=== PATIENT | male | born 1930 | race Caucasian/White ===

== ENCOUNTER → 2016-09-01 | Outpatient (CLI) | payer MEDICARE, BC | END | disposition home or self-care (01) | LOC: GMAM 15:28 | PROVIDERS: ATTEND Family Medicine | DX: R80.9 Proteinuria, unspecified (principal) ==

== ENCOUNTER → 2017-03-02 | Outpatient (CLI) | payer MEDICARE, BC | END | disposition home or self-care (01) | LOC: GMAM 10:57 | PROVIDERS: ATTEND Family Medicine | DX: Z12.5 Encounter for screening for malignant neoplasm of prostate (principal) ==

== ENCOUNTER 2017-04-12 15:50 | Observation (INO) | payer MEDICARE, BC ==
--- NOTE | 2017-04-12 16:00 | ED.PDOC ---
History of Present Illness - General Chief Complaint: General Stated Complaint: cough/sore throat Time Seen by Provider: 04/12/17 15:59 Source: patient Exam Limitations: no limitations - History of Present Illness Comments: Vinny Basilio 86 y/o male stated that he got back from [place] yesterday and had productive cough and achy throat starting yesterday.Denies fever ,SOB,chest pains.No nausea vomiting Timing/Duration: yesterday Cough Quality/Degree: productive cough Possible Cause: no prior episodes Improving Factors: nothing Worsening Factors: nothing Associated Symptoms: sore throat Allergies/Adverse Reactions: Allergies NO KNOWN ALLERGY Allergy (Verified 04/12/17 16:06) Home Medications: Ambulatory Orders Albuterol Inhaler [Ventolin Hfa Inhaler] 108 mcg IN Q6HR #1 inh 04/12/17 Azithromycin Tab [Zithromax] 500 mg PO QDPC #6 tab 04/12/17 Promethazine-Dm [Promethazine-Dm 6.25-15 mg/5Ml] 2.5 tsp PO QID #200 syp Review of Systems - Review of Systems Constitutional: States: no symptoms reported EENTM: States: nose congestion Respiratory: States: see HPI Cardiology: States: no symptoms reported Gastrointestinal/Abdominal: States: no symptoms reported Genitourinary: States: no symptoms reported Past Medical History (General) - Patient Medical History Hx Other PMH: Yes - narcolepsy Surgical History: other - cataract Family Medical History - Family History Mother Family History: Unknown Physical Exam - Physical Exam General Appearance: Alert, No apparent distress Eye Exam: right other - blurry vision right eye with corrective galsses, left normal ENT Exam: normal ENT inspection, hearing grossly normal, pharyngeal erythema Neck: non-tender, full range of motion, supple Respiratory: chest non-tender, no respiratory distress, other - coarse breath sounds Cardiovascular/Chest: regular rate, rhythm, no murmur Gastrointestinal/Abdominal: normal bowel sounds, non tender, soft, no organomegaly Extremity: normal inspection, no pedal edema, no calf tenderness Neurologic: alert, oriented x 3 Progress - Progress Progress: 04/12/17 16:30 Vital Signs 04/12/17 04/12/17 15:58 16:07 Temperature 101.3 F H Pulse Rate [ 120 H pulse ox] Respiratory 20 20 Rate Blood Pressure 110/70 [left arm] O2 Sat by Pulse 92 L Oximetry - Results/Orders Results/Orders: Laboratory Tests 04/12/17 04/12/17 04/12/17 16:08 16:52 16:52 WBC 8.1 RBC 4.03 L Hgb 12.7 L Hct 37.7 L MCV 93.5 MCH 31.5 H MCHC 33.6 RDW 12.8 Plt Count 169 MPV 8.6 Absolute Neuts (auto) 6.10 Absolute Lymphs (auto) 0.90 L Absolute Monos (auto) 0.80 Absolute Eos (auto) 0.20 Absolute Basos (auto) 0.10 Neutrophils % 75.5 Lymphocytes % 10.6 L Monocytes % 10.1 H Eosinophils % 3.1 Basophils % 0.7 Sodium 138 Potassium 4.4 Chloride 104 Carbon Dioxide 26 Anion Gap 12.4 BUN 35 H Creatinine 2.19 H BUN/Creatinine Ratio 16.0 Random Glucose 118 H Serum Osmolality 284.7 Lactic Acid Calcium 8.6 Total Bilirubin 0.8 AST 24 ALT 19 Alkaline Phosphatase 42 Serum Total Protein 6.9 Albumin 4.0 Globulin 2.9 Albumin/Globulin Ratio 1.4 Group A Strep DNA Negative 04/12/17 16:52 WBC RBC Hgb Hct MCV MCH MCHC RDW Plt Count MPV Absolute Neuts (auto) Absolute Lymphs (auto) Absolute Monos (auto) Absolute Eos (auto) Absolute Basos (auto) Neutrophils % Lymphocytes % Monocytes % Eosinophils % Basophils % Sodium Potassium Chloride Carbon Dioxide Anion Gap BUN Creatinine BUN/Creatinine Ratio Random Glucose Serum Osmolality Lactic Acid 1.0 Calcium Total Bilirubin AST ALT Alkaline Phosphatase Serum Total Protein Albumin Globulin Albumin/Globulin Ratio Group A Strep DNA FLU SWAB -negative - EKG/XRAY/CT XRAY: chest - no acute abnormalities Departure - Departure Clinical Impression: Renal insufficiency Bronchitis, acute Qualifiers: Bronchitis organism: unspecified organism Qualified Code(s): J20.9 - Acute bronchitis, unspecified Time of Disposition: 19:26 [facility] Living Condition: Fair Instructions: DI for Acute Bronchitis, Acute Bronchitis, Acute Bronchitis ( Alternative Therapy) Referrals: Kyle Mccormick MD [Primary Care Provider] - 1-2 Weeks Prescriptions: Albuterol Inhaler [Ventolin Hfa Inhaler] 108 mcg IN Q6HR #1 inh Azithromycin Tab [Zithromax] 500 mg PO QDPC #6 tab Promethazine-Dm [Promethazine-Dm 6.25-15 mg/5Ml] 2.5 tsp PO QID #200 syp Home Medications: Ambulatory Orders Albuterol Inhaler [Ventolin Hfa Inhaler] 108 mcg IN Q6HR #1 inh 04/12/17 Azithromycin Tab [Zithromax] 500 mg PO QDPC #6 tab 04/12/17 Promethazine-Dm [Promethazine-Dm 6.25-15 mg/5Ml] 2.5 tsp PO QID #200 syp Additional Instructions: Follow up with primary MD 04/14/2017 call for appointment;Tylenol-500 mg by mouth every 6 hours as needed for fever
[2017-04-12] MEDS ORDERED: IPRATROPIUM/ALBUTEROL 3 ML VIAL NEB ONE (16:30)
--- NOTE | 2017-04-12 16:51 | RAD ---
PROCEDURE: XR CHEST 1 VIEW HISTORY: cough COMPARISON: None TECHNIQUE: Single projection of the chest was done. FINDINGS: The lung rivera are well inflated . There are no discrete airspace infiltrates, pneumothoraces or pleural effusions. The pulmonary vascularity is normal. The cardiomediastinal silhouette is unremarkable for patient's age and sex. IMPRESSION: There is no acute pleural-parenchymal process seen in the imaged lung rivera. Location of Interpretation: Teleradiology Electronically signed by: Cristopher Diamond MD 04/12/2017 4:50 PM CDT Workstation: [id number]
[2017-04-12] MEDS ORDERED: AZITHROMYCIN IV 500 MG in SODIUM CHLORIDE 0.9% 250ML 250 ML IVPB ONE (17:46)
[2017-04-12] MEDS ORDERED: SODIUM CHLORIDE 0.9% 500ML 500 ML IVS ONE (17:46)
[2017-04-12] MEDS ORDERED: AZITHROMYCIN IV 500 MG VIAL IVPB ONE (18:07)
[2017-04-12] MEDS ORDERED: SODIUM CHLORIDE 0.9% 250ML 250 ML ONE (18:07)
[2017-04-12] MEDS ORDERED: BENZONATATE PERLES 100 MG CAP PO ONE (18:22)
[2017-04-12] MEDS ORDERED: DEXTROMET/GUAIFENESIN 600/30 TAB PO ONE (18:28)
[2017-04-12] MEDS: guaiFENesin ER TAB 600 MG TAB PO SCH (18:35)
[2017-04-12] MEDS ORDERED: LEVALBUTEROL NEBS 1.25 MG/3 ML VIAL NEB ONE ×2 (19:04→19:05)
[2017-04-12] MEDS ORDERED: SODIUM CHLORIDE 0.9% 1000ML 1,000 ML ONE (20:22)
[2017-04-12] MEDS ORDERED: SODIUM CHLORIDE 0.9% 1000ML 1,000 ML IVS ONE (20:22)
[2017-04-12] MEDS ORDERED: ACETAMINOPHEN 500 MG TAB ONE (20:29)
[2017-04-12] MEDS ORDERED: DEXTROMET/GUAIFENESIN 600/30 TAB PO SCH (21:00)
[2017-04-12] MEDS ORDERED: ACETAMINOPHEN 500 MG TAB PO ONE (21:16)
[2017-04-12] MEDS ORDERED: KETOROLAC TROMETHAMINE INJ 30 MG/ML VIAL IV ONE (23:06)
[2017-04-13] MEDS ORDERED: SODIUM CHLORIDE 0.9% 1000ML 1,000 ML IVS ONE (00:04)
[2017-04-13] MEDS ORDERED: ACETAMINOPHEN 325 MG TAB PO PRN (00:45)
[2017-04-13] MEDS ORDERED: LEVALBUTEROL NEBS 1.25 MG/3 ML VIAL INH PRN (00:45)
[2017-04-13] MEDS ORDERED: SODIUM CHLORIDE 0.9% (FLUSH) 10 ML SYG IV PRN (00:45)
[2017-04-13] MEDS: guaiFENesin ER TAB 600 MG TAB PO SCH ×3 (00:47→20:46)
[2017-04-13] MEDS ORDERED: IV SET AND CAP CHANGE INJ INJ SCH (01:00)
[2017-04-13] MEDS ORDERED: methylPREDNISolone SODIUM SUC 125 MG/2 ML VIAL IV ONE (01:12)
[2017-04-13] MEDS ORDERED: cefTRIAXone SODIUM 1 GM VIAL ONE (01:13)
[2017-04-13] MEDS ORDERED: SODIUM CHL 0.9% 50ML MIN-BAG+ 50 ML IVPB ONE (01:13)
[2017-04-13] MEDS: cefTRIAXone SODIUM 1 GM in SODIUM CHL 0.9% 50ML MIN-BAG+ 50 ML IVPB SCH (01:15)
[2017-04-13] MEDS ORDERED: SODIUM CHLORIDE 0.9% 250ML 250 ML ONE (08:04)
[2017-04-13] MEDS ORDERED: AZITHROMYCIN IV 500 MG VIAL IVPB ONE (08:04)
[2017-04-13] MEDS: LEVALBUTEROL NEBS 1.25 MG/3 ML VIAL INH SCH ×3 (08:35→23:26)
[2017-04-13] MEDS ORDERED: DOCUSATE SODIUM 100 MG CAP PO PRN (09:00)
[2017-04-13] MEDS ORDERED: TELMISARTAN 20 MG PO SCH (09:00)
[2017-04-13] MEDS: DOCUSATE SODIUM 100 MG CAP PO SCH (09:27)
[2017-04-13] MEDS: PANTOPRAZOLE SODIUM TAB 40 MG PO SCH (09:27)
[2017-04-13] MEDS: METHYLPHENIDATE HCL 5 MG PO SCH ×4 (11:30→20:54)
[2017-04-13] MEDS: FELODIPINE 5 MG PO SCH (11:30)
[2017-04-13] MEDS ORDERED: KCL 20MEQ/0.45% NS 1,000 ML IVS PRN (13:18)
[2017-04-13] MEDS ORDERED: DUTASTERIDE 0.5 MG CAP ONE (14:28)
[2017-04-13] MEDS ORDERED: TAMSULOSIN 0.4 MG CAP ONE (14:28)
[2017-04-13] MEDS ORDERED: TAMSULOSIN 0.4 MG CAP PO SCH (18:00)
[2017-04-13] MEDS ORDERED: DUTASTERIDE 0.5 MG CAP PO SCH (18:00)
[2017-04-13] MEDS ORDERED: MORPHINE PCA 1 MG/ML 100 ML BAG IVPB ONE (18:09)
--- NOTE | 2017-04-13 19:09 | PCM.CORE ---
Physician DVT/VTE - Nurse DVT Assessment & Total Each Risk Factor Represents 3 Points: Age over 75 years Each Risk Factor is 1 Point: Obesity (BMI >25) DVT Assessment Score: 4 - 3-4 High Risk Treatments: Early Ambulation *, Sequential Compression Device Pharmacological: Enoxaparin 40 mg SQ Daily
[2017-04-13] MEDS ORDERED: AZITHROMYCIN IV 500 MG in SODIUM CHLORIDE 0.9% 250ML 250 ML IVPB SCH (19:30)
[2017-04-13] MEDS ORDERED: ENOXAPARIN SODIUM 40 MG/0.4 ML SYG SUBCU SCH (21:00)
[2017-04-14] MEDS ORDERED: ALUM & MAG HYDROX-SIMETHICONE 30 ML UD PO PRN (00:40)
[2017-04-14] MEDS ORDERED: diphenhydrAMINE HCL 25 MG CAP PO PRN (00:41)
[2017-04-14] MEDS ORDERED: SODIUM CHL 0.9% 50ML MIN-BAG+ 50 ML IVPB ONE (00:50)
[2017-04-14] MEDS ORDERED: cefTRIAXone SODIUM 1 GM VIAL ONE (00:50)
[2017-04-14] MEDS: cefTRIAXone SODIUM 1 GM in SODIUM CHL 0.9% 50ML MIN-BAG+ 50 ML IVPB SCH (01:17)
[2017-04-14] MEDS: PANTOPRAZOLE SODIUM TAB 40 MG PO SCH (05:53)
--- NOTE | 2017-04-14 06:49 | RAD ---
Clinical History : hypoxia , MAIN Exam : PA and lateral views of the chest 04/14/2017 7:00 AM CDT Comparisons : Portable AP view of the chest April 12, 2017 Findings : The lungs are clear without focal consolidation or pleural effusion. The heart is normal in size. The mediastinal contours are normal in appearance. The thoracic spine is age appropriate. The shoulders are unremarkable. Limited evaluation of the upper abdomen demonstrates no gross abnormalities. Impression: No acute cardiopulmonary disease Electronically signed by: Roxanne Arias MD 04/14/2017 6:48 AM CDT
[2017-04-14] MEDS ORDERED: LOSARTAN POTASSIUM 25 MG TAB ONE (07:47)
[2017-04-14] MEDS ORDERED: PHENOL THROAT SPRAY 180 ML BTTL MT PRN (08:30)
[2017-04-14] MEDS ORDERED: PHENOL THROAT SPRAY 180 ML BTTL MT ONE (08:30)
[2017-04-14] MEDS: guaiFENesin ER TAB 600 MG TAB PO SCH (08:38)
[2017-04-14] MEDS: FELODIPINE 5 MG PO SCH (08:38)
[2017-04-14] MEDS: DOCUSATE SODIUM 100 MG CAP PO SCH (08:38)
[2017-04-14] MEDS: METHYLPHENIDATE HCL 5 MG PO SCH (08:39)
[2017-04-14] MEDS ORDERED: LOSARTAN POTASSIUM 25 MG TAB PO SCH (09:00)
[2017-04-14 11:00] VITALS: BP 112/72; TEMP 97.8; O2SAT 97
--- NOTE | 2017-04-15 08:22 | SSS ---
SUPERVISING PHYSICIAN: Jose Gresham M.D. DATE OF ADMISSION: 04/13/17 DATE OF DISCHARGE: 04/14/17 CHIEF COMPLAINT: Cough and sore throat. HISTORY OF PRESENT ILLNESS: Mr. Basilio is an 86 year-old male patient that just recently returned from an extensive trip to [place] and a [place] cruise. On his way home going through [place] he developed a productive cough and sore throat. He denied any fever, shortness of breath, chest pains, nausea or vomiting. He did note that his sputum had become more productive and more purulent in nature. X-ray in the Emergency Department single view chest showed no consolidation or opacities. His laboratory studies initially showed a white count of 8.1, hemoglobin 12.7, hematocrit 37.7 without a left shift. Blood gas analysis did show a mild hypoxemia with PO2 of 78, PCO2 of 40, satting 96% on room air. Chemistry showed a decreased renal function with BUN of 35, creatinine 2.19. Lactic acid was normal at 1.0. Microbiology showed a Group A Strep DNA PCR was negative. On initial presentation to the Emergency Department , his vital signs did show that he was febrile with a temperature of 101.9. Heart rate was 140 with blood pressure 86/30, initially was satting 90% on room air. Given that he was showing some early signs of sepsis and had recently travelled out of the country and an extensive amount of travel within the last several days, and was developing upper respiratory symptoms, Dr. Burns, E. R. physician, requested the patient be admitted to the hospital to be placed in Observation at least for 24 hours with concerns for developing community acquired pneumonia. His first lactic acid was within normal limits. He was showing hypotensive, therefore he was given some IV fluids in the Emergency Department and prior to admission along with Tylenol. His heart rate remained at 101 with temperature going down to 99.4, but his blood pressure had improved to 106/60. Given that he was shown to be stable, he was placed in observation to the Medical/Surgical floor for further continuation with concerns for pneumonia community acquired. He was placed in Observation in stable condition. PAST MEDICAL HISTORY: 1. Hypertension. 2. Renal insufficiency. 3. Chronic lower back pain. 4. Arthritis. 5. Glaucoma. 6. Obesity. 7. Narcolepsy. PAST SURGICAL HISTORY: 1. Tonsillectomy. 2. Eye surgery. 3. Last echocardiogram noted to be in 2007 which was showing an ejection fraction of 61%. HOME MEDICATIONS: 1. Docusate 100 mg as needed. 2. Docusate 100 mg daily. 3. Dutasteride 0.5 mg every PM. 4. Felodipine extended release 5 mg daily. 5. Lasix 20 mg daily as needed. 6. Lasix 20 mg daily. 7. Methylphenidate 5 mg twice daily. 8. Multivitamins 1 capsule daily. 9. Nitroglycerin 0.4 mg sublingual every 5 minutes p.r.n. 10. Potassium chloride 8 mEq as needed. 11. Flomax 0.4 mg daily. 12. Micardis 20 mg daily. 13. Protonix 40 mg daily. 14. Citracal Plus 1 tablet daily. 15. Ascorbic acid 1 tablet daily. ALLERGIES: LISINOPRIL. FAMILY HISTORY: Positive for coronary artery disease. Father at age 58 secondary to myocardial infarction. Mother at age 91. SOCIAL HISTORY: The patient lives at [facility]. 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 He is . He has never smoked and does not drink alcohol. REVIEW OF SYSTEMS: CONSTITUTIONAL: As noted in the History of Present Illness, fever and chills, generalized weakness. HEENT: Notable nasal congestion, hoarseness, sore throat. RESPIRATORY: As noted in the History of Present Illness. CARDIOVASCULAR: No chest pains, palpitations, syncopal episodes. GASTROINTESTINAL: No nausea, vomiting, diarrhea, constipation or bowel habit change. GENITOURINARY: Denies any dysuria or hematuria or other urinary symptoms. NEUROLOGIC: No neurological deficits noted. PHYSICAL EXAMINATION: VITAL SIGNS: Temperature 101.3, heart rate 140, blood pressure 86/30, respirations 20, satting 90% on room air. Admission weight 93.5 kg. GENERAL: On examination on the Medical/Surgical floor, the patient appeared to be resting comfortably in no acute distress. Well nourished, somewhat hydrated. He is alert and oriented times three. HEENT: Tympanic membranes are clear bilaterally. Oropharynx is mildly erythematous. No drainage was noted. No lesions. NECK: Supple, non-tender with full range of motion. No jugular venous distention. CHEST: Lungs were coarse throughout with just very faint rhonchi heard on the right anterior aspect of the upper lung, left was fairly clear but both were diminished bilaterally towards the bases. CARDIOVASCULAR: Regular rate and rhythm without appreciable murmurs, gallops, or rubs. ABDOMEN: Obese but soft, non-tender with positive bowel sounds. EXTREMITIES: No clubbing, cyanosis or edema. NEUROLOGIC: He is alert and oriented times three. Facial features were symmetrical. Extraocular movements are within normal limits. There is no notable nystagmus. Cranial nerves II-XII are grossly intact. LABORATORY: Initial CBC on admission showed a white count of 8.1, hemoglobin 12.7, hematocrit 37.7 with platelet count 169,000. Differential shows no left shift initially. Blood gas showed a mild hypoxemia with PO2 of 78 on room air. CO2 was 40, pH was 7.37, bicarb 22, satting 96% on 3 liters nasal cannula. Chemistries showed normal electrolytes, BUN was elevated at 35, creatinine 2.19 , glucose 118. Liver functions all showed to be within normal limits. Lactic acid was 1.0. Urinalysis showed a trace of blood, otherwise within normal limits. He has a Legionella antigen testing pending. Group A Strep by DNA PCR was negative. MICROBIOLOGY: Blood cultures are pending times 2. Sputum culture pending. Gram stain showed many WBCs with positive cocci in chains and gram positive lancet-shaped cocci with gram negative cocci in pairs, gram negative cocci in chains with moderate amount of budding yeast. Group A Streptococcus culture was pending. Influenza A by PCR which was negative for both A and B. RADIOLOGY: Chest x-ray initially in the Emergency Department single view chest per radiology interpretation showed no acute pleural parenchymal processes noted in the imaged rivera. ASSESSMENT: 1. Acute bronchitis with concerns for developing community-acquired pneumonia with the patient having a history of recent travel both out of the [place] and showing gram stain with multiple organisms with cultures pending. 2. Febrile illness likely secondary to number 1. 3. Systemic inflammatory response is noted by tachycardia, fever and hypotension with a normal lactic acid likely secondary to acute bronchitis developing with community-acquired pneumonia. 4. History of Hypertension. 5. Acute pharyngitis with initial Strep screen being negative. 6. Renal insufficiency possibly secondary to prerenal azotemia requiring initiation of fluids. 7. Hypotension with tachycardia secondary to #1 showing initially good response with IV fluids and initiation of parenteral antibiotics. PLAN: The patient will be placed in observation initially. He did show response to initial treatment with fluids, initiation of antibiotics to include Azithromycin and Rocephin. He will be started on Xopenex breathing treatments as well as have aggressive pulmonary hygiene with chest physiotherapy. Will plan to give him some IV fluids to help with improving renal function initially with half normal saline with 20 of potassium to run at 80 an hour. Will anticipate length of stay to be 1 to 2 days with reevaluation clinically with repeat chest x-ray and laboratory studies in the morning. Until then, will continue to monitor and treat appropriately. #[id number] [facility]
--- NOTE | 2017-04-15 13:26 | DS ---
SUPERVISING PHYSICIAN: Jose Gresham MD DISCHARGE DIAGNOSIS: 1. Acute bronchitis with concerns for developing community-acquired pneumonia with the patient having a history of recent travel out of the [facility] and showing gram stain with multiple organisms with cultures pending. 2. Febrile illness, likely secondary to #1. 3. Systemic inflammatory response as noted by tachycardia, fever and hypotension with a normal lactic acid, likely secondary to acute bronchitis. 4. History of Hypertension. 5. Acute pharyngitis with initial Strep screen being negative. 6. Renal insufficiency, possibly secondary to prerenal azotemia, requiring initiation of fluids. 7. Hypotension with tachycardia, secondary to #1, showing initially good response with IV fluids and parenteral antibiotics. HISTORY OF PRESENT ILLNESS: This is an 86-year-old male patient that just recently returned to [place] after an extensive trip to [place] and a [place] cruise. On his way home going through [place], he developed a productive cough and sore throat. He denied any fever, shortness of breath, chest pains, nausea or vomiting. He did note that his sputum had become more productive and more purulent in nature. X-ray in the Emergency Department single view chest showed no consolidation or opacities. His initial laboratory studies initially showed a white count of 8.1, hemoglobin 12.7, hematocrit 37.7 without a left shift. Blood gas analysis did show a mild hypoxemia with PO2 of 78, PCO2 of 40 , satting 96% on room air. Chemistry showed a decreased renal function with BUN of 35, creatinine 2.19. Lactic acid was normal at 1.0. Group A Strep DNA PCR was negative. He was febrile initially in the extraocular movements with a temperature of 101.9. Heart rate was 140 with blood pressure 86/30, initially was satting 90% on room air. He was showing some early signs of sepsis and had recently travelled out of the [facility]. He was admitted and placed in observation for 24 hours with concerns of developing community acquired pneumonia. By the time he was admitted to the Floor, vital signs had stabilized and he was placed in observation. HOSPITAL COURSE: He was given fluids as well as Rocephin and azithromycin. His chest x-ray this morning per radiologic interpretation again showed no acute cardiopulmonary disease. His AM labs showed normalized WBCs of 9.9 with a hemoglobin of 10.6 and 31.7. Chemistries were basically within normal limits. His preliminary blood cultures showed no growth after 24 hours. The patient responded very well to his IV fluids. Vital signs stable. He will be discharged home. DISCHARGE PLAN: The patient will be discharged home in stable condition. He is to resume his previous medications and I have added azithromycin for several more days. He is to followup with Dr. Mccormick on 04/21/17 at 2:45. He is to return to the Emergency Room or call Dr. Mccormick's office, [facility], he has any further problems. DISCHARGE MEDICATIONS: 1. Albuterol inhaler. 2. Azithromycin. 3. Promethazine syrup. 4. Telmisartan. 5. Tamsulosin. 6. Potassium chloride. 7. Protonix. 8. Nitroglycerin. 9. Multivitamin. 10. Methylphenidate. 11. Furosemide. 12. Felodipine. 13. Dutasteride. 14. Docusate sodium. 15. Citracal Plus. 16. Ascorbic acid. 17. Maalox. Dr. Gresham is the is the collaborating physician and available for consultation. #[id number] [facility]
== END 2017-04-14 11:45 | disposition home or self-care (01) ==
LOC: ER 15:50 → MS 15:59 → UNDOADMOB 04-13 00:19 → MS 04-13 00:19 → UNDODISOB 04-14 11:45
PROVIDERS: ADMIT Nurse Practitioner Family; ATTEND Nurse Practitioner Acute Care
DX: J20.8 Acute bronchitis due to other specified organisms (principal); R65.10 Systemic inflammatory response syndrome (SIRS) of non-infectious origin without acute organ dysfunction; R50.9 Fever, unspecified; I10 Essential (primary) hypertension; J02.9 Acute pharyngitis, unspecified; N28.9 Disorder of kidney and ureter, unspecified; I95.9 Hypotension, unspecified; R00.0 Tachycardia, unspecified; R09.02 Hypoxemia; G89.29 Other chronic pain; M54.5 Low back pain; M19.90 Unspecified osteoarthritis, unspecified site; G47.419 Narcolepsy without cataplexy; E66.9 Obesity, unspecified; Z79.899 Other long term (current) drug therapy; Z88.8 Allergy status to other drugs, medicaments and biological substances; Z82.49 Family history of ischemic heart disease and other diseases of the circulatory system; Z68.27 Body mass index [BMI] 27.0-27.9, adult
CPT/HCPCS: 36415 ×4; 36600; 71010; 71020; 80048; 80053 ×2; 81001; 82803; 82805; 83605; 85025 ×3; 87040 ×2; 87070 ×2; 87205; 87449; 87502; 87651; 93005; 94640 ×4; 94760 ×3; 94762; 96361 ×2; 96365; 96366; 96367; 96372; 96375 ×2; 96376 ×2; 99284; G0378; J0456 ×2; J0696 ×2; J1650; J1885; J2930; J3480; J7030 ×2; J7040; J7050 ×4; J7614 ×5; J7620; Q0163

== ENCOUNTER 2017-08-30 13:23 | Emergency (ER) | payer MEDICARE, BC ==
[2017-08-30] MEDS ORDERED: IBUPROFEN 200 MG TAB PO ONE (13:49)
--- NOTE | 2017-08-30 14:03 | RAD ---
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 No pleural effusion or pneumothorax. Cardiac silhouette is normal in size. Impression: No acute pulmonary process. Electronically signed by: Trina Majano MD 08/30/2017 2:02 PM KNITTER OPERATOR
[2017-08-30] MEDS ORDERED: SODIUM CHLORIDE 0.9% 1000ML 1,000 ML IVS ONE (14:38)
[2017-08-30] MEDS ORDERED: OSELTAMIVIR 75 MG CAP PO ONE (16:08)
[2017-08-30] MEDS ORDERED: levoFLOXacin 500 MG TAB PO ONE (16:08)
[2017-08-30 16:09] VITALS: TEMP 100.6
[2017-08-30] MEDS ORDERED: predniSONE 20 MG TAB PO ONE (16:09)
[2017-08-30] MEDS ORDERED: ACETAMINOPHEN 325 MG TAB PO ONE (16:11)
--- NOTE | 2017-08-30 16:11 | ED.PDOC ---
History of Present Illness - General Chief Complaint: Fever Stated Complaint: Weakness Time Seen by Provider: 08/30/17 13:46 Source: patient Exam Limitations: no limitations - History of Present Illness Initial Comments: the patient is an 86-year-old male presenting to the emergency room secondary to fever and malaise primarily over the last 24-48 hours. He has felt generally weak. He has had a poor oral intake. No nausea vomiting diarrhea or constipation. No shortness of breath or chest pain. No syncope or significant syncope. He is feeling very fatigued. Mild generalized body aches. He does have a little bit of a cough and a little bit of a runny nose. No real sore throat. Mild headache. Timing/Duration: 24 hours Severity: moderate Improving Factors: nothing Worsening Factors: nothing Associated Symptoms: cough, fever/chills, loss of appetite, malaise, weakness Allergies/Adverse Reactions: Allergies Lisinopril Allergy (Mild, Verified 08/30/17 13:38) Unknown allergy per pt Home Medications: Ambulatory Orders Albuterol Inhaler [Ventolin Hfa Inhaler] 108 mcg IN Q6HR #1 inh 04/12/17 Alum & Mag Hydrox-Simethicone [Aluminum/Magnesium/Simeth 200-200-20 mg/5Ml] 10 ml PO Q6H PRN 04/13/17 Ascorbic Acid [Vitamin C] 1,000 mg PO DAILY #0 04/13/17 Docusate Sodium 100 mg PO DAILY 04/13/17 Docusate Sodium 100 mg PO DAILY PRN 04/13/17 Dutasteride 0.5 mg PO QPM 04/13/17 Felodipine [Felodipine ER] 5 mg PO DAILY 04/13/17 Furosemide 20 mg PO DAILY 04/13/17 Furosemide 20 mg PO DAILY PRN 04/13/17 Methylphenidate HCl 5 mg PO BID 04/13/17 Multiple Minerals W/ Vitamins [Citracal Plus] 1 tab PO DAILY #0 04/13/17 Multiple Vitamin [Multivitamins] 1 cap PO DAILY 04/13/17 Nitroglycerin 0.4 mg SL Q5MIN PRN 04/13/17 Pantoprazole Tablet [Protonix] 40 mg PO DAILY 04/13/17 Potassium Chloride [Potassium Chloride ER] 8 meq PO DAILY 04/13/17 Potassium Chloride [Potassium Chloride ER] 8 meq PO PRN PRN 04/13/17 Tamsulosin HCl [Flomax] 0.4 mg PO BEDTIME 04/13/17 Telmisartan [Micardis] 20 mg PO DAILY 04/13/17 Acetaminophen [APAP Extra Strength] 500 mg PO Q6H PRN 08/30/17 Oseltamivir Capsule [Tamiflu] 75 mg PO BID 5 Days #10 capsule 08/30/17 Promethazine-Dm [Promethazine-Dm 6.25-15 mg/5Ml] 2.5 tsp PO Q6H PRN 08/30/17 levoFLOXacin [Levaquin] 500 mg PO DAILY #5 tab 08/30/17 Review of Systems - Review of Systems Constitutional: States: fever, malaise, weakness EENTM: States: nose congestion Respiratory: States: cough Cardiology: States: no symptoms reported Gastrointestinal/Abdominal: States: no symptoms reported Genitourinary: States: no symptoms reported Musculoskeletal: States: no symptoms reported Skin: States: no symptoms reported Neurological: States: see HPI Endocrine: States: no symptoms reported All other Systems: No Change from Baseline Past Medical History (General) - Patient Medical History Hx Seizures: No Hx Stroke: No Hx Asthma: No Hx of COPD: No Hx Congestive Heart Failure: No Hx Pacemaker: No Hx Hypertension: Yes Hx Diabetes: No Hx Renal Disease: Yes Hx MRSA: No - Vaccination History Hx Influenza Vaccination: Yes - 2017 Hx Pneumococcal Vaccination: Yes - Social History Hx Tobacco Use: No Hx Alcohol Use: No Hx Substance Use: No Hx Substance Use Treatment: No Hx Depression: No Hx Physical Abuse: No Hx Emotional Abuse: No - Activities of Daily Living Half-Way/Assisted Living (if applicable):: [facility] Family Medical History - Family History Mother Family History: Unknown Living Status: Father Family History: No Known Living Status: Hx Family;Other: at 48 of unknown causes Physical Exam - Physical Exam General Appearance: Alert, No apparent distress Eye Exam: bilateral normal Ears, Nose, Throat: hearing grossly normal, nasal congestion Neck: full range of motion, supple Respiratory: lungs clear - mild clearing cough, normal breath sounds, no respiratory distress, no accessory muscle use Cardiovascular/Chest: normal peripheral pulses, no edema, other - regular rate Peripheral Pulses: radial,right: 2+, radial,left: 2+, dorsalis pedis,right: 2+, dorsalis pedis,left: 2+ Gastrointestinal/Abdominal: non tender, soft Rectal Exam: deferred Back Exam: normal inspection, no CVA tenderness, no vertebral tenderness Extremity: non-tender, normal inspection, no pedal edema, normal capillary refill 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 II-XII nml as tested, alert, normal mood/affect, oriented x 3 Skin Exam: normal color Comments: Vital Signs - 24 hr 08/30/17 08/30/17 08/30/17 13:31 14:00 15:00 Temperature 101.2 F H 101.2 F H Pulse Rate [ 100 H 96 H 82 Left Radial] Respiratory 22 22 20 Rate Blood Pressure 115/81 131/59 [Left Arm] O2 Sat by Pulse 93 L 94 L 93 L Oximetry 08/30/17 15:50 Temperature 100.6 F H Pulse Rate [ 84 Left Radial] Respiratory 20 Rate Blood Pressure 108/56 [Left Arm] O2 Sat by Pulse 94 L Oximetry Progress - Progress Progress: 08/30/17 16:13 the patient 86-year-old male presenting to the emergency room secondary to fever and malaise for the last couple of days. He does have a mild runny nose and a mild cough. Blood work, urinalysis and chest x-ray are actually fairly reassuring. He does have a very mild leukocytosis and very mild acute renal failure. He was given a dose of IV fluids here for the acute renal failure. He was given Motrin and Tylenol for the fever. The patient is being empirically covered for flu as well as bacterial infections with Tamiflu and Levaquin. No flu test is available. No evidence of sepsis, pneumonia or meningitis. No evidence of infection otherwise. The patient will be placed on Tamiflu for 5 days and Levaquin for 5 days. He needs to keep himself well- hydrated. He needs to follow up with his primary care doctor in 2 days. He needs to alternate Tylenol and Motrin to keep his fever and body aches down over the next 24-48 hours. - Results/Orders Results/Orders: Laboratory Tests 08/30/17 08/30/17 08/30/17 14:07 14:07 14:07 WBC 9.9 RBC 4.15 L Hgb 12.9 L Hct 38.3 L MCV 92.3 MCH 31.0 MCHC 33.8 RDW 12.4 Plt Count 164 MPV 8.6 Absolute Neuts (auto) 8.10 H Absolute Lymphs (auto) 0.90 L Absolute Monos (auto) 0.90 H Absolute Eos (auto) 0.00 Absolute Basos (auto) 0.10 Neutrophils % 81.7 H Lymphocytes % 8.8 L Monocytes % 8.8 Eosinophils % 0.1 L Basophils % 0.6 Sodium 138 Potassium 4.3 Chloride 104 Carbon Dioxide 22 Anion Gap 16.3 BUN 33 H Creatinine 2.29 H BUN/Creatinine Ratio 14.4 Random Glucose 114 H Serum Osmolality 283.8 Lactic Acid 1.1 Calcium 9.4 Total Bilirubin 0.9 AST 22 ALT 14 Alkaline Phosphatase 49 Creatine Kinase 160 CK-MB (CK-2) 0.8 CK-MB (CK-2) % Not Reportable Troponin I < 0.02 B-Natriuretic Peptide 88.4 Serum Total Protein 6.9 Albumin 4.1 Globulin 2.8 Albumin/Globulin Ratio 1.5 Urine Color Urine Appearance Urine pH Ur Specific [place] Urine Protein Urine Glucose (UA) Urine Ketones Urine Blood Urine Nitrite Urine Bilirubin Urine Urobilinogen Ur Leukocyte Esterase Urine RBC Urine WBC Ur Epithelial Cells Urine Bacteria 08/30/17 15:48 WBC RBC Hgb Hct MCV MCH MCHC RDW Plt Count MPV Absolute Neuts (auto) Absolute Lymphs (auto) Absolute Monos (auto) Absolute Eos (auto) Absolute Basos (auto) Neutrophils % Lymphocytes % Monocytes % Eosinophils % Basophils % Sodium Potassium Chloride Carbon Dioxide Anion Gap BUN Creatinine BUN/Creatinine Ratio Random Glucose Serum Osmolality Lactic Acid Calcium Total Bilirubin AST ALT Alkaline Phosphatase Creatine Kinase CK-MB (CK-2) CK-MB (CK-2) % Troponin I B-Natriuretic Peptide Serum Total Protein Albumin Globulin Albumin/Globulin Ratio Urine Color Yellow Urine Appearance Clear Urine pH 5.5 Ur Specific [place] 1.010 Urine Protein Negative Urine Glucose (UA) Negative Urine Ketones Negative Urine Blood Trace-intact H Urine Nitrite Negative Urine Bilirubin Negative Urine Urobilinogen 0.2 Ur Leukocyte Esterase Negative Urine RBC 1-3 Urine WBC 0 Ur Epithelial Cells 0 Urine Bacteria 0 hest x-ray appears benign. Departure - Departure Clinical Impression: Fever of unknown origin Disposition: Discharge to Home or Self Care Condition: Fair Departure Forms: ED Discharge - Pt. Copy, Patient Portal Self Enrollment Instructions: DI for Fever (Symptom) -- Adult Diet: regular diet Activity: increase activity as tolerated Referrals: Kyle Mccormick MD [Primary Care Provider] - 1-2 Days Prescriptions: levoFLOXacin [Levaquin] 500 mg PO DAILY #5 tab Oseltamivir Capsule [Tamiflu] 75 mg PO BID 5 Days #10 capsule Home Medications: Ambulatory Orders Albuterol Inhaler [Ventolin Hfa Inhaler] 108 mcg IN Q6HR #1 inh 04/12/17 Alum & Mag Hydrox-Simethicone [Aluminum/Magnesium/Simeth 200-200-20 mg/5Ml] 10 ml PO Q6H PRN 04/13/17 Ascorbic Acid [Vitamin C] 1,000 mg PO DAILY #0 04/13/17 Docusate Sodium 100 mg PO DAILY 04/13/17 Docusate Sodium 100 mg PO DAILY PRN 04/13/17 Dutasteride 0.5 mg PO QPM 04/13/17 Felodipine [Felodipine ER] 5 mg PO DAILY 04/13/17 Furosemide 20 mg PO DAILY 04/13/17 Furosemide 20 mg PO DAILY PRN 04/13/17 Methylphenidate HCl 5 mg PO BID 04/13/17 Multiple Minerals W/ Vitamins [Citracal Plus] 1 tab PO DAILY #0 04/13/17 Multiple Vitamin [Multivitamins] 1 cap PO DAILY 04/13/17 Nitroglycerin 0.4 mg SL Q5MIN PRN 04/13/17 Pantoprazole Tablet [Protonix] 40 mg PO DAILY 04/13/17 Potassium Chloride [Potassium Chloride ER] 8 meq PO DAILY 04/13/17 Potassium Chloride [Potassium Chloride ER] 8 meq PO PRN PRN 04/13/17 Tamsulosin HCl [Flomax] 0.4 mg PO BEDTIME 04/13/17 Telmisartan [Micardis] 20 mg PO DAILY 04/13/17 Acetaminophen [APAP Extra Strength] 500 mg PO Q6H PRN 08/30/17 Oseltamivir Capsule [Tamiflu] 75 mg PO BID 5 Days #10 capsule 08/30/17 Promethazine-Dm [Promethazine-Dm 6.25-15 mg/5Ml] 2.5 tsp PO Q6H PRN 08/30/17 levoFLOXacin [Levaquin] 500 mg PO DAILY #5 tab 08/30/17 Additional Instructions: the patient 86-year-old male presenting to the emergency room secondary to fever and malaise for the last couple of days. He does have a mild runny nose and a mild cough. Blood work, urinalysis and chest x-ray are actually fairly reassuring. He does have a very mild leukocytosis and very mild acute renal failure. He was given a dose of IV fluids here for the acute renal failure. He was given Motrin and Tylenol for the fever. The patient is being empirically covered for flu as well as bacterial infections with Tamiflu and Levaquin. No flu test is available. No evidence of sepsis, pneumonia or meningitis. No evidence of infection otherwise. The patient will be placed on Tamiflu for 5 days and Levaquin for 5 days. He needs to keep himself well- hydrated. He needs to follow up with his primary care doctor in 2 days. He needs to alternate Tylenol and Motrin to keep his fever and body aches down over the next 24-48 hours. blood culture was performed here today. Lactic acid was within normal limits. He should hold his water pills and vitamins for the next few days.
[2017-08-30 16:46] VITALS: BP 110/56; O2SAT 95
== END 2017-08-30 16:46 | disposition home or self-care (01) ==
LOC: ER 13:23
DX: R50.9 Fever, unspecified (principal); I10 Essential (primary) hypertension; N28.9 Disorder of kidney and ureter, unspecified; Z79.899 Other long term (current) drug therapy
CPT/HCPCS: 36415; 71046; 80053; 81001; 82550; 82553; 83605; 83880; 84484; 85025; 87040; J7030; J7512

== ENCOUNTER → 2017-12-17 | Outpatient (CLI) | payer MEDICARE, BC ==
--- NOTE | 2017-12-17 11:13 | MRI ---
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 Small joint effusion otherwise. Multifocal grade 4 chondrosis throughout the patella especially apex and lateral facet with subchondral cystic change and edema. Minimal lateral patellar tracking. Grade 2-3 diffuse chondrosis of the femoral trochlea as well. The ACL is absent from prior disruption. PCL is intact. There is extensive volume loss of both menisci. This is in part postsurgical as there has been previous arthroscopy. Extensor tendons are intact. Diffuse marked thinning of the body and posterior horn medial meniscus with mild free edge fraying anterior horn. Diffuse defect in the posterior horn lateral meniscus with horizontal background degenerative signal in the remaining body and anterior horn indicating degenerative tear superimposed on partial meniscectomy change. Diffuse grade 4 chondrosis throughout the posterior aspect lateral femoral condyle and posterior lateral tibial plateau with subchondral edema and mild cystic change. There is tendinosis of the popliteus tendon without rupture. The collateral ligaments are intact. Mild intrameniscal and para meniscal cyst formation along the anterior horn degenerative tear lateral meniscus. Partial extrusion of both menisci as well. 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
== END ==
LOC: MRI 09:39
PROVIDERS: ATTEND Family Medicine
DX: M25.561 Pain in right knee (principal); M17.11 Unilateral primary osteoarthritis, right knee; M71.21 Synovial cyst of popliteal space [Baker], right knee

== ENCOUNTER 2018-01-07 09:25 | Emergency (ER) | payer MEDICARE, BC ==
[2018-01-07] MEDS ORDERED: SODIUM CHLORIDE 0.9% 1000ML 1,000 ML ONE (09:34)
[2018-01-07] MEDS ORDERED: SODIUM CHLORIDE 0.9% 1000ML 1,000 ML IVS ONE (09:38)
[2018-01-07 09:39] VITALS: TEMP 97.8
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
[2018-01-07] MEDS ORDERED: KETOROLAC TROMETHAMINE INJ 30 MG/ML VIAL IV ONE (10:21)
[2018-01-07] MEDS ORDERED: KETOROLAC TROMETHAMINE INJ 30 MG/ML VIAL ONE (10:22)
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
[2018-01-07] MEDS ORDERED: NEOMYCIN-BACITRACIN-POLYMYXIN 0.9 GM UD TOP ONE ×2 (10:41→10:43)
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
--- NOTE | 2018-01-07 11:18 | CT ---
EXAM DESCRIPTION: Thoracic Spine CLINICAL HISTORY: 87 years, Male, discomfort around mid back back, R/O fx COMPARISON: None TECHNIQUE: CT of the thoracic spine was performed without IV contrast. This exam was performed according to our departmental dose-optimization program, which includes automated exposure control, adjustment of the mA and/or kV according to patient size and/or use of iterative reconstruction technique. FINDINGS: There is no vertebral body fracture or subluxation. The facet joints are anatomically aligned. The spinous and transverse processes are intact. No posterior rib fracture is seen. Rptv-[id number] degenerative changes are noted at multiple levels in the thoracic spine consisting primarily of marginal osteophyte formation, most prominent anteriorly. Degenerative disc disease noted at L1-2. The paraspinal soft tissues are unremarkable. 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 No airspace consolidation, lung nodule or pleural effusion is visualized. The lungs and pleural spaces are only partially included on this exam. Visualized portions of the abdomen are unremarkable. IMPRESSION: Mild to moderate degenerative changes at multiple levels in the thoracic spine without acute thoracic spine abnormality. 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 Differential includes large thyroid nodule, but thyroid or other neoplasm not excluded. Chest CT with IV contrast is recommended for further evaluation. Electronically signed by: Irwin Rowan MD 01/07/2018 11:17 AM CDT
[2018-01-07 18:53] VITALS: BP 138/80; O2SAT 99
== END 2018-01-07 12:10 | disposition home or self-care (01) ==
LOC: ER 09:25
DX: T14.8XXA Other injury of unspecified body region, initial encounter (principal); I12.9 Hypertensive chronic kidney disease with stage 1 through stage 4 chronic kidney disease, or unspecified chronic kidney disease; N18.9 Chronic kidney disease, unspecified; S51.012A Laceration without foreign body of left elbow, initial encounter; S51.011A Laceration without foreign body of right elbow, initial encounter; R22.2 Localized swelling, mass and lump, trunk; Z79.899 Other long term (current) drug therapy; V03.00XA Pedestrian on foot injured in collision with car, pick-up truck or van in nontraffic accident, initial encounter; Y92.79 Other farm location as the place of occurrence of the external cause
CPT/HCPCS: 71046; 71111; 72070; 72128; 80053; 82948; 85025; J1885; J7030

== ENCOUNTER → 2018-01-19 | Outpatient (CLI) | payer MEDICARE, BC ==
--- NOTE | 2018-01-19 09:33 | CT ---
Procedure: CT CHEST WITHOUT IV CONTRAST Exam Date: 01/19/2018 Ordering Provider: LUCITA LOZADA Clinical Indication: MEDIASTINAL MASS Comparison: 01/07/2018 CT thoracic spine TECHNIQUE: 5 mm images were taken through the chest without intravenous contrast material. Coronal and sagittal reformatted images were generated. This exam was performed according to our departmental dose optimization program which includes use of automated exposure control, adjustment of the mA and/or kV according to patient size and/or use of iterative reconstruction technique. FINDINGS: Lines/Tubes/Devices: None Lungs and large airways: There are a few ill-defined groundglass opacities lungs. No focal lung consolidation. There is a 2 mm nodule in the left upper lobe on axial image 36. There is a 2 mm nodule in the right lower lobe on axial image 38. Pleura: No pleural effusion. No pneumothorax. Mediastinum and aguila: There is a partially calcified complex appearing mediastinal mass which could be contiguous with the left lobe of the thyroid gland. This exerts mass effect on the airway and esophagus with rightward deviation. Mass measures roughly 5.4 x 4.2 x 7.1 cm. Evaluation of hilar lymphadenopathy is limited without IV contrast. Otherwise, no thoracic lymphadenopathy. Heart and great vessels: The heart is not enlarged. No pericardial effusion. No aortic aneurysm. Aortic calcification. Coronary artery calcifications. Chest wall, lower neck, axillae: No axillary lymphadenopathy. Upper abdomen: Nonacute Bones: Nonacute IMPRESSION: 1. Partially calcified complex appearing mediastinal mass could be contiguous with the left lobe of the thyroid gland. This exerts mass effect on the airway and esophagus. Further evaluation with thyroid ultrasound is recommended. 2. There are a few ill-defined groundglass opacities in both lungs which could be infectious or inflammatory. 3. Tiny bilateral lung nodules. No follow-up required if patient is low risk, optional follow-up in 12 months if patient is high risk. Electronically signed by: José Jeff MD 01/19/2018 9:32 AM CDT
== END ==
LOC: CT 09:30
PROVIDERS: ATTEND Family Medicine
DX: R22.2 Localized swelling, mass and lump, trunk (principal); E04.8 Other specified nontoxic goiter; R91.8 Other nonspecific abnormal finding of lung field

== ENCOUNTER → 2018-01-20 | Outpatient (CLI) | payer MEDICARE, BC ==
--- NOTE | 2018-01-20 11:55 | US ---
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 COMPARISON: 01/19/2018 CT chest FINDINGS: Thyroid size: Right lobe of the thyroid gland measures 4.0 x 1.5 x 1.6 cm. Left lobe of the thyroid gland measures 4.2 x 2.0 x 1.9 cm. Isthmus measures 2 mm. Texture: Slightly heterogenous Estimated total number of nodules >/=1 cm: 2 Number of spongiform nodules >/=2 cm not described below (TR1): 0 Number of mixed cystic and solid nodules >/=1.5 cm not described below (TR2): 0 Nodule #: #: 1: Maximum size: 1.2 cm; All dimensions 1.2 x 0.7 x 1.0 cm Location: left; mid Composition: mixed cystic and solid (1) Echogenicity: isoechoic (1) Shape: not [id number] (0) Margins: smooth (0) Echogenic foci: none (0) ACR TI-RADS total points: 2. ACR TI-RADS risk category: TR2 (2 points) ACR TI-RADS recommendation: No further follow-up Nodule #: #: 2: Maximum size: 1.1 cm; All dimensions 1.0 x 0.7 x 1.1 cm Location: left; upper Composition: cystic/almost completely cystic (0) Echogenicity: anechoic (0) Shape: not [id number] (0) Margins: smooth (0) Echogenic foci: none (0) ACR TI-RADS total points: 0. ACR TI-RADS risk category: TR1 (0 Points) ACR TI-RADS recommendation: No further follow-up IMPRESSION: 1. Left thyroid nodules. No further follow-up required. 2. Mediastinal mass seen on comparison CT is not clearly contiguous with the left lobe of the thyroid gland although substernal imaging was technically difficult. In retrospect, this was probably present on the 2017 chest x-rays where there was rightward deviation of the trachea. Consider further evaluation with nuclear medicine I-123 with SPECT. ACR TI-RADS recommendations: TR5 (>/=7 points) - FNA if >/=1 cm, follow-up if 0.5 - 0.9 cm every year for 5 years TR4 (4-6 points) - FNA if >/=1.5 cm, follow-up if 1 - 1.4 cm in 1, 2, 3 and 5 years TR3 (3 points) - FNA if >/=2.5 cm, follow -up if 1.5 - 2.4 cm in 1, 3 and 5 years TR2 (2 points) and TR1 (0 points) - No FNA or follow-up * ACR TI-RADS recommends that no more than two nodules with the highest ACR TI-RADS total point should be biopsied and no more than four nodules should be followed. Electronically signed by: José Jeff MD 01/20/2018 11:54 AM CDT
== END ==
LOC: US 09:30
PROVIDERS: ATTEND Family Medicine
DX: E04.8 Other specified nontoxic goiter (principal); R22.2 Localized swelling, mass and lump, trunk

== ENCOUNTER → 2018-01-25 | Outpatient (CLI) | payer MEDICARE, BC | LOC: GMAM 15:02 | PROVIDERS: ATTEND Family Medicine | DX: E03.9 Hypothyroidism, unspecified (principal); E04.8 Other specified nontoxic goiter ==

== ENCOUNTER → 2018-05-06 | Outpatient (CLI) | payer MEDICARE ==
--- NOTE | 2018-05-06 19:34 | CT ---
EXAM DESCRIPTION: Chest w/o Contrast : Computed Tomography. CLINICAL HISTORY: MEDIASTINAL MASS COMPARISON: CT scan of the chest without contrast 01/19/2018. TECHNIQUE: Spiral-axial scans at 5 x 5 mm intervals through the lungs and thorax without IV contrast. 2.5 x 5 mm lung algorithm axial reconstructions. 2.0 Mm reconstructions. No adverse reactions. Total Exam DLP: 833.57 mGy-cm. This exam was performed according to our departmental dose-optimization program which includes automated exposure control, adjustment of the mA and/or kV according to patient size and/or use of iterative reconstruction technique; to reduce radiation dose to as low as reasonably achievable (ALARA). FINDINGS: Again seen is a partially calcified mediastinal mass with heterogeneous increased and decreased density and lobular margins measuring 7.3 x 4.1 cm in the coronal plane with AP diameter 5.2 cm. Stable in size and calcifications since the prior study. The mass upper margin is abutting the lower left thyroid lobe with mass effect on the trachea displaced to the right in the esophagus displaced to the right and posteriorly. Inferior margin of the mass is between the trachea and the medial aortic arch to the left. No enlarged lymph nodes or other soft tissue masses abutting the mass. No large soft tissue masses or enlarged lymph nodes elsewhere in the mediastinum or hilum . Minimal groundglass density in the inferior lateral base of the right upper lobe and also lateral base of the right middle lobe, bilateral posterior recesses of the lower lobes, and inferior lingula. Stable since the prior study. No abnormal nodules larger than 4 mm mean diameter bilaterally. No pleural effusion or pneumothorax. Atherosclerotic calcification in the aortic arch and proximal brachiocephalic vessels as well as coronary arteries. Stable since the prior study. Included peritoneal space in the abdomen is unremarkable. Included renal cortex appears atrophic bilaterally. Normal size and density of the adrenal glands and spleen. Fatty appearance of the included pancreas. Spondylosis at multiple levels of thoracic spine. Bilateral sternoclavicular arthrosis. Mild arthrosis right glenohumeral joint. No definite lytic or blastic lesions. IMPRESSION: 1. Large upper mediastinal soft tissue mass with scattered calcifications, located to the left of midline with mass effect on the esophagus trachea vessels and abutting the inferior left thyroid lobe. Stable size since the prior CT scan January 2018. Most likely represents extension of thyroid tissue. Stable size, less likely to represent active metastasis. Evaluation by thyroid ultrasound could not demonstrate continuity. Consider evaluation with radionuclide I-123 thyroid imaging. 2. Bilateral pulmonary densities are chronic and stable since the prior study. Electronically signed by: Torres Sanders MD 05/06/2018 7:32 PM CDT
== END ==
LOC: CT 08:51
PROVIDERS: ATTEND Family Medicine
DX: R22.2 Localized swelling, mass and lump, trunk (principal)

== ENCOUNTER → 2018-05-12 | Outpatient (CLI) | payer MEDICARE | LOC: GMAM 10:34 | PROVIDERS: ATTEND Family Medicine | DX: R53.83 Other fatigue (principal) ==

== ENCOUNTER 2018-07-13 04:54 | Emergency (ER) | payer MEDICARE ==
--- NOTE | 2018-07-13 05:18 | ED.PDOC ---
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 He has mild muscular abdominal pain from that episode. He has not had another episode since and he says that his nausea is "almost gone". His last BM was just before the vomiting and was normal. He has had multiple similarly sick contacts. No other complaints. Timing/Duration: 1 hour Severity: moderate Improving Factors: nothing Worsening Factors: nothing Associated Symptoms: denies symptoms <Ryne Villa - Last Filed: 07/13/18 06:57> <Bayron Mccormick - Last Filed: 07/13/18 08:11> - General Chief Complaint: General Stated Complaint: vomiting Time Seen by Provider: 07/13/18 05:01 - History of Present Illness Allergies/Adverse Reactions: Allergies Lisinopril Allergy (Mild, Verified 08/30/17 13:38) Unknown allergy per pt Home Medications: Ambulatory Orders Albuterol Inhaler [Ventolin Hfa Inhaler] 108 mcg IN Q6HR #1 inh 04/12/17 Alum & Mag Hydrox-Simethicone [Aluminum/Magnesium/Simeth 200-200-20 mg/5Ml] 10 ml PO Q6H PRN 04/13/17 Ascorbic Acid [Vitamin C] 1,000 mg PO DAILY #0 04/13/17 Docusate Sodium 100 mg PO DAILY 04/13/17 Docusate Sodium 100 mg PO DAILY PRN 04/13/17 Dutasteride 0.5 mg PO QPM 04/13/17 Felodipine [Felodipine ER] 5 mg PO DAILY 04/13/17 Furosemide 20 mg PO DAILY 04/13/17 Furosemide 20 mg PO DAILY PRN 04/13/17 Methylphenidate HCl [Methylphenidate Hydrochlo] 5 mg PO BID 04/13/17 Multiple Minerals W/ Vitamins [Citracal Plus] 1 tab PO DAILY #0 04/13/17 Multiple Vitamin [Multivitamins] 1 cap PO DAILY 04/13/17 Nitroglycerin 0.4 mg SL Q5MIN PRN 04/13/17 Pantoprazole Tablet [Protonix] 40 mg PO DAILY 04/13/17 Potassium Chloride [Potassium Chloride ER] 8 meq PO DAILY 04/13/17 Potassium Chloride [Potassium Chloride ER] 8 meq PO PRN PRN 04/13/17 Tamsulosin HCl [Flomax] 0.4 mg PO BEDTIME 04/13/17 Telmisartan [Micardis] 20 mg PO DAILY 04/13/17 Acetaminophen [APAP Extra Strength] 500 mg PO Q6H PRN 08/30/17 Oseltamivir Capsule [Tamiflu] 75 mg PO BID 5 Days #10 capsule 08/30/17 Promethazine-Dm [Promethazine-Dm 6.25-15 mg/5Ml] 2.5 tsp PO Q6H PRN 08/30/17 levoFLOXacin [Levaquin] 500 mg PO DAILY #5 tab 08/30/17 Ondansetron [Zofran Odt] 4 mg PO Q4H PRN #10 tab 07/13/18 Review of Systems - Review of Systems Constitutional: States: no symptoms reported EENTM: States: no symptoms reported Respiratory: States: no symptoms reported Cardiology: States: no symptoms reported Gastrointestinal/Abdominal: States: see HPI Genitourinary: States: no symptoms reported Musculoskeletal: States: no symptoms reported Skin: States: no symptoms reported Neurological: States: no symptoms reported Endocrine: States: no symptoms reported Hematologic/Lymphatic: States: no symptoms reported <Ryne Villa - Last Filed: 07/13/18 06:57> Past Medical History (General) - Patient Medical History Hx Seizures: No Hx Stroke: No Hx Asthma: No Hx of COPD: No Hx Congestive Heart Failure: No Hx Pacemaker: No Hx Hypertension: Yes Hx Diabetes: No Hx Renal Disease: Yes Hx MRSA: No - Vaccination History Hx Influenza Vaccination: Yes - 2017 Hx Pneumococcal Vaccination: Yes - Social History Hx Tobacco Use: No Hx Alcohol Use: No Hx Substance Use: No Hx Substance Use Treatment: No Hx Depression: No Hx Physical Abuse: No Hx Emotional Abuse: No <Ryne Villa Last Filed: 07/13/18 06:57> Family Medical History - Family History Mother Family History: Unknown Living Status: Father Family History: No Known Living Status: Hx Family;Other: at 48 of unknown causes <Ryne Villa Last Filed: 07/13/18 06:57> Physical Exam - Physical Exam General Appearance: Alert Eye Exam: bilateral normal Ears, Nose, Throat: normal ENT inspection Neck: non-tender, full range of motion, supple Respiratory: lungs clear, normal breath sounds Cardiovascular/Chest: regular rate, rhythm, no edema Gastrointestinal/Abdominal: normal bowel sounds, non tender, soft Back Exam: normal inspection, no CVA tenderness Extremity: normal range of motion, non-tender, normal inspection Neurologic: no motor/sensory deficits, alert, normal mood/affect, oriented x 3 Skin Exam: normal color Lymphatic: no adenopathy <Ryne Villa - Last Filed: 07/13/18 06:57> Progress - Progress Progress: 07/13/18 06:57 Patient had another vomiting episode in the E.D. and was given Zofran 4 mg IV x one and NS one liter IV bolus x one. <Ryne Villa - Last Filed: 07/13/18 06:57> Departure <Ryne Villa - Last Filed: 07/13/18 06:57> - Departure Diet: bland diet Activity: increase activity as tolerated <Bayron Mccormick - Last Filed: 07/13/18 08:11> - Departure Clinical Impression: Gastroenteritis Disposition: Discharge to SNF Condition: Fair Departure Forms: ED Discharge - Pt. Copy, Patient Portal Self Enrollment Instructions: Viral Gastroenteritis, Adult (DC) Referrals: Kyle Mccormick MD [Primary Care Provider] - 1-2 Weeks Prescriptions: Ondansetron [Zofran Odt] 4 mg PO Q4H PRN #10 tab PRN Reason: Vomiting Home Medications: Ambulatory Orders Albuterol Inhaler [Ventolin Hfa Inhaler] 108 mcg IN Q6HR #1 inh 04/12/17 Alum & Mag Hydrox-Simethicone [Aluminum/Magnesium/Simeth 200-200-20 mg/5Ml] 10 ml PO Q6H PRN 04/13/17 Ascorbic Acid [Vitamin C] 1,000 mg PO DAILY #0 04/13/17 Docusate Sodium 100 mg PO DAILY 04/13/17 Docusate Sodium 100 mg PO DAILY PRN 04/13/17 Dutasteride 0.5 mg PO QPM 04/13/17 Felodipine [Felodipine ER] 5 mg PO DAILY 04/13/17 Furosemide 20 mg PO DAILY 04/13/17 Furosemide 20 mg PO DAILY PRN 04/13/17 Methylphenidate HCl [Methylphenidate Hydrochlo] 5 mg PO BID 04/13/17 Multiple Minerals W/ Vitamins [Citracal Plus] 1 tab PO DAILY #0 04/13/17 Multiple Vitamin [Multivitamins] 1 cap PO DAILY 04/13/17 Nitroglycerin 0.4 mg SL Q5MIN PRN 04/13/17 Pantoprazole Tablet [Protonix] 40 mg PO DAILY 04/13/17 Potassium Chloride [Potassium Chloride ER] 8 meq PO DAILY 04/13/17 Potassium Chloride [Potassium Chloride ER] 8 meq PO PRN PRN 04/13/17 Tamsulosin HCl [Flomax] 0.4 mg PO BEDTIME 04/13/17 Telmisartan [Micardis] 20 mg PO DAILY 04/13/17 Acetaminophen [APAP Extra Strength] 500 mg PO Q6H PRN 08/30/17 Oseltamivir Capsule [Tamiflu] 75 mg PO BID 5 Days #10 capsule 08/30/17 Promethazine-Dm [Promethazine-Dm 6.25-15 mg/5Ml] 2.5 tsp PO Q6H PRN 08/30/17 levoFLOXacin [Levaquin] 500 mg PO DAILY #5 tab 08/30/17 Ondansetron [Zofran Odt] 4 mg PO Q4H PRN #10 tab 07/13/18 Additional Instructions: patient presents with gastroenteritis that is prevalent in the community currently. He has responded well to antiemetics and a dose of IV fluids. will be discharged with Zofran for as needed use.
[2018-07-13 06:25] VITALS: TEMP 97.1
[2018-07-13] MEDS ORDERED: ONDANSETRON INJ 4 MG/2 ML VIAL IV ONE (06:44)
[2018-07-13] MEDS ORDERED: ONDANSETRON INJ 4 MG/2 ML VIAL ONE (06:45)
[2018-07-13 06:53] VITALS: O2SAT 94
[2018-07-13] MEDS ORDERED: SODIUM CHLORIDE 0.9% 1000ML 1,000 ML IVS ONE (06:56)
[2018-07-13 08:51] VITALS: BP 132/76
== END 2018-07-13 08:51 ==
LOC: ER 04:54
DX: K52.9 Noninfective gastroenteritis and colitis, unspecified (principal); N18.9 Chronic kidney disease, unspecified; I12.9 Hypertensive chronic kidney disease with stage 1 through stage 4 chronic kidney disease, or unspecified chronic kidney disease; Z79.899 Other long term (current) drug therapy; Z88.8 Allergy status to other drugs, medicaments and biological substances
CPT/HCPCS: 36415; 80053; 83690; 85025; J2405; J7030

== ENCOUNTER → 2018-07-22 | Outpatient (CLI) | payer MEDICARE | LOC: GMAM 10:43 | PROVIDERS: ATTEND Family Medicine | DX: Z12.5 Encounter for screening for malignant neoplasm of prostate (principal) ==

== ENCOUNTER → 2018-10-04 | Outpatient (CLI) | payer MEDICARE ==
--- NOTE | 2018-10-04 15:23 | US ---
EXAM DESCRIPTION: Venous,Lower Extremity LT: ULTRASOUND. CLINICAL HISTORY: EDEMA R60.0 COMPARISON: Duplex ultrasound left lower extremity deep venous system evaluation 07/10/2015. "No DVT seen." TECHNIQUE: Otero-scale and doppler sonographic evaluation of the deep venous system of the left lower extremity. FINDINGS: Doppler evaluation shows normal color flow and normal phasicity and augmentation of the left common femoral vein, femoral vein, popliteal vein, greater saphenous vein, peroneal, and posterior tibial vein. The left lower extremity deep veins were completely compressible; normal occlusion with transducer pressure. Otero-scale survey showed no echogenic thrombus within these veins. IMPRESSION: 1. Duplex ultrasound evaluation of the left lower extremity deep venous system showing no evidence of thrombosis. Electronically signed by: Torres Sanders MD 10/04/2018 3:20 PM CDT
== END ==
LOC: US 10:18
PROVIDERS: ATTEND Family Medicine
DX: R60.0 Localized edema (principal)

== ENCOUNTER → 2018-10-08 | Outpatient (CLI) | payer MEDICARE ==
--- NOTE | 2018-10-08 16:04 | CT ---
EXAM DESCRIPTION: Chest w/o Contrast : Computed Tomography. CLINICAL HISTORY: 87 years Male MEDIASTINAL MASS COMPARISON: CT scan of the lung without IV contrast 05/06/2018. TECHNIQUE: Spiral-axial scans at 5 x 5 mm intervals through the lungs and thorax without IV contrast. 2.5 x 5 mm lung algorithm axial reconstructions. Sagittal and coronal 2.0 Mm reconstructions. Total Exam DLP: 1378.63 mGy-cm. This exam was performed according to our departmental dose-optimization program which includes automated exposure control, adjustment of the mA and/or kV according to patient size and/or use of iterative reconstruction technique; to reduce radiation dose to as low as reasonably achievable (ALARA). Nodule measurements under 10 mm are given as mean value of 3 axes diameters. FINDINGS: Lungs and large airways: Posterior bibasilar dependent atelectasis. Decreased lung volume bilaterally. No abnormal nodules or focal masses. No focal infiltrates. Pleural spaces: Minimal bibasilar pleural thickening. No pneumothorax or effusion. Mediastinum and Nyla: Again noted is a heterogeneous mass with scattered foci of calcifications, with the upper margin at the level of the mid thyroid more to the left of midline with mass effect on the left thyroid lobe and displacing the trachea and esophagus to the right. Maximum transverse dimensions 5.9 x 4.2 cm at the level of the third thoracic vertebra just above the bilateral sternoclavicular joints. 7.1 cm long axis paralleling the spine and the trachea. Mass effect on the mediastinal vessels and abutting the aortic arch. No other soft tissue masses in the mediastinum and no enlarged lymph nodes. Evaluation limited due to lack of IV contrast. Great vessels and Heart: Atherosclerotic calcification aortic arch proximal brachiocephalic vessels and coronary arteries. Soft tissues of neck base, axillae, and chest wall: Evaluation limited due to lack of IV contrast. No new soft tissue masses. Upper abdomen: No free fluid free air or abnormal density in the peritoneal space. Partial visualization of the adrenal glands spleen and other abdominal organs unremarkable. Radiodense material in the distal stomach. Gallbladder partially visualized. Osseous structures: Diffuse thoracic spondylosis and bilateral sternoclavicular arthrosis as well as mild bilateral glenohumeral arthrosis. Thoracic scoliosis. No lytic or blastic lesions. IMPRESSION: 1. Stable heterogeneous solid mass in the left mediastinum, 7.1 cm long axis parallel to the trachea, with upper margin at the level of the left thyroid lobe. Stable appearance with multiple small foci of calcification, smooth margin, not invasive into adjacent structures. Differential remains thyroid origin, thymic origin. Unlikely to represent parathyroid origin without metabolic changes. Mass effect on the trachea and esophagus but no compression. 2. Stable appearance of other mediastinal or hilar structures and the lungs. Limited evaluation of soft tissues by CT without IV contrast. Electronically signed by: Torrse Sanders MD 10/08/2018 4:01 PM CDT
--- NOTE | 2018-10-08 16:29 | CT ---
EXAM DESCRIPTION: Abdomen/Pelvis w/o Contrast: Computed Tomography. CLINICAL HISTORY: 87 years Male EDEMA COMPARISON: CT scan of the chest and thorax from the same visit today. TECHNIQUE: Spiral-axial scans 5 x 5 mm intervals through the abdomen and pelvis without oral or IV contrast. Coronal and sagittal 2 x 2 mm reconstructions. Total Exam DLP: 1378.63 mGy-cm. This exam was performed according to our departmental CT dose-optimization program which includes automated exposure control, adjustment of the mA and/or kV according to patient size and/or use of iterative reconstruction technique; to reduce radiation dose to as low as reasonably achievable (ALARA). FINDINGS: Liver, stomach, spleen, and adrenal glands: Stomach is distended with fluid and food. Solid organs negative. Pancreas, Gallbladder, and Ducts: Gallbladder visualized. Common bile duct nondistended. Pancreas negative. Kidneys and Ureters: Bilateral cortical atrophy and small with no hydronephrosis. Pararenal stranding physiologic. Ureters negative. Mesentery: No ascites or free air. No fatty stranding. Aorta: Atherosclerotic changes and ectasia extending into the bilateral common iliac arteries. Small Bowel: Normal caliber. Terminal Ileum/Cecum: Superior location, posterior to the liver. Minimally distended with Fecal matter. Appendix not seen. Colon: Redundant ascending colon and hepatic flexure which extends between the abdominal wall and the right liver. Fecal material throughout the colon. Minimal redundancy of the sigmoid.. Pelvic Organs: Prostate gland abuts the urinary bladder and seminal vesicles. Spine and Bony Pelvis: Spondylosis L4-5, L5-S1, and L1-L2. Also thoracic spine. Scoliosis. Degenerative changes in the bilateral hip joints and pubic symphysis. Abdominal Wall/Back Soft Tissues: Bilateral small fatty inguinal hernias not containing bowel. Minimal diastases at the umbilicus not containing bowel. IMPRESSION: 1. No ascites in the abdomen or free fluid in the pelvis. No fatty stranding or inflammatory changes in the abdomen or pelvis. No peritoneal or retroperitoneal masses. No augmentation in evaluating soft tissues due to lack of IV contrast. 2. Cecum and terminal ileum are located between the liver and the abdominal wall. Redundancy of the ascending colon and hepatic flexure. Appendix was not seen. Moderate burden of, fecal matter throughout the colon with minimal redundancy of the sigmoid colon. Electronically signed by: Torres Sanders MD 10/08/2018 4:26 PM CDT
== END ==
LOC: CT 09:00
PROVIDERS: ATTEND Family Medicine
DX: R22.2 Localized swelling, mass and lump, trunk (principal)

== ENCOUNTER → 2019-02-15 | Outpatient (CLI) | payer MEDICARE | LOC: GMAM 11:00 | PROVIDERS: ATTEND Family Medicine | DX: E04.8 Other specified nontoxic goiter (principal); I10 Essential (primary) hypertension ==